=== PATIENT | female | born 1980 ===

== ENCOUNTER 2021-08-28 06:00 | Day surgery (SDC) | payer OTHER ==
[2021-08-28] MEDS ORDERED: NEXIUM 24HR20 M1 PO (08:53)
== END 2021-08-28 09:55 | disposition home or self-care (01) ==
LOC: AMB-ENDOS 06:00
PROVIDERS: ATTEND Surgery
DX: K31.7 Polyp of stomach and duodenum (principal); Z20.822 Contact with and (suspected) exposure to COVID-19